=== PATIENT | female | born 1990 | race Caucasian/White ===

== ENCOUNTER 2022-06-04 19:58 | Emergency (ER) | payer BC, SELFPAY ==
[2022-06-04 21:08] LABS: Absolute Lymphocytes (CBC) 3.1 K/uL (0.7-4.9); Hematocrit 30.2 % (36.0-45.0); Lymphocytes % 31.8 % (15.3-44.8); MPV 7.3 fL (7.6-11.3); RBC Red Blood Cell Count 3.68 M/uL (3.86-4.86)
[2022-06-04] MEDS ORDERED: KETOROLAC 30 MG/ML INJ ONE (21:21)
[2022-06-04] MEDS ORDERED: NA CHLORIDE 0.9% 1,000 ML ONE (21:21)
[2022-06-04 21:31] LABS: BUN Blood Urea Nitrogen 9 mg/dL (7-18); Bicarbonate 23 mmol/L (21-32); Glomerular Filtration Rate 111 ml/min (=/>90); Glucose Level 110 mg/dL (74-106); Potassium 3.4 mmol/L (3.5-5.1); Sodium Level 140 mmol/L (136-145)
[2022-06-04 21:35] LABS: Urine Blood 3+ (Negative); Urine Glucose Trace (Negative); Urine Protein 3+ (Negative); Urine Specific Gravity <=1.005 (1.005-1.030); Urine pH 8.5 (5.0-7.0)
[2022-06-04 21:51] LABS: Ferritin 12.9 ng/mL (8-388)
[2022-06-04 22:07] LABS: HCG, Quantitative < 1 mIU/mL (1-3)
--- NOTE | 2022-06-04 22:11 | RAD REPORT ---
EXAM DESCRIPTION: US - Transvaginal Study Probe - 06/04/2022 9:59 pm CLINICAL HISTORY: VAGINAL BLEEDING Pelvic pain. COMPARISON: No comparisons FINDINGS: The uterus is normal in size, shape and echotexture. The uterus measures 9.4 x 7.6 x 4.6 c m. The endometrial stripe measures 11 mm, normal. The right ovary is normal in size, shape and echotexture. The right ovary measures 2.5 x 2.2 x 1.9 c m. The left ovary is not visualized due to bowel gas. No adnexal masses. Normal Doppler blood flow was demonstrated to the right ovary. No significant pelvic ascites. IMPRESSION: Negative examination except for nonvisualization left ovary due to bowel gas.
--- NOTE | 2022-06-04 22:52 | ER ---
Nurse's Notes [facility] Name: Rosibel Arenas Age: 32 yrs Sex: Female : 1990 Arrival Date: 06/04/2022 Time: 20:04 Bed 4 Private MD: Diagnosis: Menorrhagia Presentation: 06/04 20:16 Chief complaint: Patient states: I am on my period and it's very heavy and I am getting jh5 clots the size of my hand, I do have heavy periods and even pass clots but never this size and I am starting to have really bad pain on my right side near what I think is my right ovary i guess. I am filling up 3-4 pads an hour. I took 1,000mg of Tylenol at 6pm. Coronavirus screen: Vaccine status: Patient reports receiving the 2nd dose of the covid vaccine. Client denies travel out of the [place] in the last 14 days. Ebola Screen: Patient negative for fever greater than or equal to 101.5 degrees Fahrenheit, and additional compatible Ebola Virus Disease symptoms Patient denies exposure to infectious person. Patient denies travel to an Ebola-affected area in the 21 days before illness onset. Initial Sepsis Screen: Does the patient meet any 2 criteria? No. Patient's initial sepsis screen is negative. Does the patient have a suspected source of infection? No. Patient's initial sepsis screen is negative. Risk Assessment: Do you want to hurt yourself or someone else? Patient reports no desire to harm self or others. Onset of symptoms was May 29, 2022. 20:16 Method Of Arrival: Ambulatory [facility] 20:16 Acuity: LENCHO 3 [facility] Triage Assessment: 20:18 General: Appears uncomfortable, obese, Behavior is calm, cooperative, appropriate for [facility] age. Pain: Complains of pain in abdomen. : Reports vaginal bleeding that is bright red, with clots, heavy flow. 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 - Social history:: Smoking status: Patient reports the use of cigarette tobacco products, smokes one-half pack cigarettes per day. Screenin:[address] [facility] ED Fall Risk Assessment (Adult) History of falling in the last 3 months, jj7 including since admission No falls in past 3 months (0 pts) Confusion or Disorientation No (0 pts) Intoxicated or Sedated No (0 pts) Impaired Gait No (0 pts) Mobility Assist Device Used No (0 pt) Altered Elimination No (0 pt) Score/Fall Risk Level 0 - 2 = Low Risk Oriented to surroundings. Abuse screen: Denies threats or abuse. Nutritional screening: No deficits noted. Tuberculosis screening: No symptoms or risk factors identified. Assessment: 20:40 General: Appears in no apparent distress. comfortable, Behavior is calm, cooperative, jj7 appropriate for age. : Reports vaginal bleeding that is with clots, heavy flow. Vital Signs: 20:16 BP 152 / 95; Pulse 119; Resp 16; Temp 98.6; Pulse Ox 100% ; Weight 106.59 kg; Height 5 [facility] ft. 3 in. (160.02 cm); Pain 7/10; 21:20 BP 136 / 64; Pulse 98; Resp 20; Pulse Ox 99% ; jj7 23:01 BP 125 / 83; Pulse 87; Resp 20; Pulse Ox 100% ; jj7 20:16 Body Mass Index 41.63 (106.59 kg, 160.02 cm) 5 ED Course: 20:04 Patient arrived in ED. ja2 20:18 Triage completed. 5 20:18 Arm band placed on left wrist. 5 20:22 Jorge Lopez MD is Attending Physician. rt 20:26 Lamin Dick, CONSUELO is Primary Nurse. as6 20:27 Stacy Scales FNP-C is PHCP. snw 20:40 Patient has correct armband on for positive identification. Bed in low position. Call j light in reach. Side rails up X 1. 20:44 Inserted saline lock: 18 gauge in left antecubital area, using aseptic technique. Blood jj7 collected. 20:58 TSH Sent. jj7 20:58 TS Sent. jj7 20:58 Basic Metabolic Panel Sent. jj7 20:58 CBC with Diff Sent. jj7 22:01 US Transvaginal Study (Probe) In Process Unspecified. EDMS 23:09 No provider procedures requiring assistance completed. IV discontinued, intact, as6 bleeding controlled, No redness/swelling at site. Pressure dressing applied. Administered Medications: 21:15 Drug: Ketorolac 30 mg Route: IVP; Site: left antecubital; as6 23:09 Follow up: Response: No adverse reaction as6 21:15 Drug: NS 0.9% 1000 ml Route: IV; Rate: 1 bolus; Site: left antecubital; as6 23:09 Follow up: Response: No adverse reaction; IV Status: Completed infusion; IV Intake: as6 1000ml Medication: 20:40 VIS not applicable for this client. jj7 Intake: 23:09 IV: 1000ml; Total: 1000ml. as6 Outcome: 22:52 Discharge ordered by . rt 23:10 Discharged to home ambulatory. as6 23:10 Condition: stable 23:10 Discharge instructions given to patient, Instructed on discharge instructions, follow up and referral plans. medication usage, Demonstrated understanding of instructions, follow-up care, medications, Prescriptions given X 1. 23:10 Patient left the ED. as6 Signatures: Dispatcher [employer] EDNE Stacy Scales, UDAY-C BPM SOLUTION ARCHITECT-Csnw Catherine Camilo ja2 Catherine Mcgill, RN RN jh5 Lamin Dick RN RN as6 Hope Martell RN RN jj7 Jorge Lopez MD MD rt Corrections: (The following items were deleted from the chart) 20:52 20:44 Inserted saline lock: 18 gauge in left antecubital area, using aseptic technique. jj7 jj7
--- NOTE | 2022-06-04 22:52 | EDPHYS ---
Physician Documentation [facility] Name: Rosibel Arenas Age: 32 yrs Sex: Female : 1990 Arrival Date: 06/04/2022 Time: 20:04 Bed 4 Private MD: ED Physician Jorge Lopez HPI: 06/04 20:41 This 32 yrs old Female presents to ER via Ambulatory with complaints of Vaginal snw Bleeding. 20:41 The patient presents with vaginal bleeding that is heavy, with clots. Onset: The snw symptoms/episode began/occurred acutely, LMP began 05/29/22. Modifying factors: The symptoms are alleviated by nothing, the symptoms are aggravated by nothing. Associated signs and symptoms: Pertinent positives: passing large clots, lower abd cramping, right greater than left. Severity of symptoms: At their worst the symptoms were moderate, severe. The patient is sexually active, reportedly has a single partner. The patient has experienced similar episodes in the past, multiple times, but today's symptoms are worse, larger blood clots, more cramping. The patient has not recently seen a physician. Previously told she had cysts or fibroids and to come to ED for increase in pain . 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 - Social history:: Smoking status: Patient reports the use of cigarette tobacco products, smokes one-half pack cigarettes per day. ROS: 20:43 Constitutional: Negative for fever, chills, and weight loss, Eyes: Negative for injury, snw pain, redness, and discharge, ENT: Negative for injury, pain, and discharge, Neck: Negative for injury, pain, and swelling, Cardiovascular: Negative for chest pain, palpitations, and edema, Respiratory: Negative for shortness of breath, cough, wheezing, and pleuritic chest pain, Back: Negative for injury and pain, MS/Extremity: Negative for injury and deformity, Skin: Negative for injury, rash, and discoloration, Neuro: Negative for headache, weakness, numbness, tingling, and seizure. 20:43 Abdomen/GI: Positive for abdominal pain. 20:43 : Positive for vaginal bleeding. Exam: 20:28 Head/Face: Normocephalic, atraumatic. Eyes: Pupils equal round and reactive to light, snw extra-ocular motions intact. Lids and lashes normal. Conjunctiva and sclera are non-icteric and not injected. Cornea within normal limits. Periorbital areas with no swelling, redness, or edema. ENT: Nares patent. No nasal discharge, no septal abnormalities noted. Tympanic membranes are normal and external auditory canals are clear. Oropharynx with no redness, swelling, or masses, exudates, or evidence of obstruction, uvula midline. Mucous membranes moist. Neck: Trachea midline, no thyromegaly or masses palpated, and no cervical lymphadenopathy. Supple, full range of motion without nuchal rigidity, or vertebral point tenderness. No Meningismus. Chest/axilla: Normal chest wall appearance and motion. Nontender with no deformity. No lesions are appreciated. 20:28 Respiratory: Lungs have equal breath sounds bilaterally, clear to auscultation and percussion. No rales, rhonchi or wheezes noted. No increased work of breathing, no retractions or nasal flaring. Back: No spinal tenderness. No costovertebral tenderness. Full range of motion. 20:28 Skin: Warm, dry with normal turgor. Normal color with no rashes, no lesions, and no evidence of cellulitis. MS/ Extremity: Pulses equal, no cyanosis. Neurovascular intact. Full, normal range of motion. Neuro: Awake and alert, GCS 15, oriented to person, place, time, and situation. Cranial nerves II-XII grossly intact. Motor strength 5/5 in all extremities. Sensory grossly intact. Cerebellar exam normal. Normal gait. 20:28 Constitutional: The patient appears alert, awake, anxious. 20:28 Cardiovascular: Rate: tachycardic, Rhythm: regular, Pulses: no pulse deficits are appreciated, Heart sounds: normal. 20:28 Abdomen/GI: Inspection: abdomen appears normal, obese Bowel sounds: normal, Palpation: mild abdominal tenderness, in the suprapubic area, right lower quadrant and left lower quadrant. 20:28 Psych: Behavior/mood is pleasant, cooperative, anxious. Vital Signs: 20:16 BP 152 / 95; Pulse 119; Resp 16; Temp 98.6; Pulse Ox 100% ; Weight 106.59 kg; Height 5 jh5 ft. 3 in. (160.02 cm); Pain 7/10; 21:20 BP 136 / 64; Pulse 98; Resp 20; Pulse Ox 99% ; jj7 23:01 BP 125 / 83; Pulse 87; Resp 20; Pulse Ox 100% ; jj7 20:16 Body Mass Index 41.63 (106.59 kg, 160.02 cm) [facility] MDM: 20:41 Patient medically screened. snw 20:44 Differential diagnosis: dysmenorrhea, endometriosis, menorrhea, ovarian cyst, uterine snw fibroids. Data reviewed: vital signs, nurses notes. I considered the following discharge prescriptions or medication management in the emergency department Toradol for pain, prostaglandin inhibition , IVF for tachycardia. Transition of care: After a detail discussion of the patient's case, care is transferred to Jorge Lopez MD. 06/04 20:23 Order name: Basic Metabolic Panel; Complete Time: 22:28 snw 06/04 20:23 Order name: CBC with Diff; Complete Time: 21:30 snw 06/04 20:23 Order name: TS; Complete Time: 22:28 snw 06/04 20:23 Order name: TSH; Complete Time: 22:28 snw 06/04 20:47 Order name: Add On-Lab w 06/04 20:27 Order name: US Transvaginal Study (Probe); Complete Time: 22:28 snw 06/04 21:35 Order name: Urine Dipstick-Ancillary; Complete Time: 22:28 EDMS 06/04 21:35 Order name: Test, Serum mw2 06/04 21:39 Order name: HCG, Quantitative; Complete Time: 22:28 EDMS 06/04 21:39 Order name: Ferritin; Complete Time: 22:28 EDOR 06/04 20:23 Order name: IV Saline Lock; Complete Time: 20:58 snw 06/04 20:23 Order name: Labs collected and sent; Complete Time: 20:58 snw 06/04 20:23 Order name: NPO; Complete Time: 20:58 snw 06/04 20:23 Order name: Urine Dipstick-Ancillary (obtain specimen); Complete Time: 21:35 snw 06/04 20:23 Order name: Urine Test (obtain specimen); Complete Time: 21:34 snw Administered Medications: 21:15 Drug: Ketorolac 30 mg Route: IVP; Site: left antecubital; as6 23:09 Follow up: Response: No adverse reaction as6 21:15 Drug: NS 0.9% 1000 ml Route: IV; Rate: 1 bolus; Site: left antecubital; 23:09 Follow up: Response: No adverse reaction; IV Status: Completed infusion; IV Intake: as6 1000ml Disposition: 22:54 Co-signature as Attending Physician, Jorge Lopez MD I reviewed the patient's care rt provided by Advanced Practice Provider \T\ agree w/ the diagnosis \T\ care plan. I personally saw the pt \T\ performed a substantive portion of the visit, incldng all aspects of the (History/Exam/Medical Decision Making). Physically evaluated the patient, she is in no acute distress my examination. She has a mild anemia, not requiring blood transfusion. I discussed with the patient supplementation to increase her bodies on blood eyes. We will start Lysteda for menorrhagia. Ultrasound shows no acute abnormalities, the rest of the work-up is benign. The patient has no signs or symptoms of UTI, will send for urine culture, will not treat at this time as she is asymptomatic. 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 Disposition Summary: 06/04/22 22:52 Discharge Ordered Location: Home rt Problem: an acute exacerbation rt Symptoms: are unchanged rt Condition: Stable rt Diagnosis - Menorrhagia rt Followup: rt - With: Private Physician - When: 2 - 3 days - Reason: Discharge Instructions: - Discharge Summary Sheet rt - Menorrhagia rt Forms: - Medication Reconciliation Form rt - Thank You Letter rt - Antibiotic Education rt - Prescription Opioid Use rt Prescriptions: - LYSTEDA 650 mg TAB - take 1 tablet by ORAL route 3 times per day; 30 tablet; Refills: 0, Product rt Selection Permitted Signatures: Dispatcher [employer] Stacy Valle FNP-C FNP-Catherine Ortiz RN RN 5 Lamin Dick RN RN as6 Jorge Lopez MD MD rt Corrections: (The following items were deleted from the chart) 20:48 FERRITIN+C.LAB.BRZ ordered. EDMS EDMS 21:36 TEST, SERUM+SC.LAB.BRZ ordered. EDMS EDMS
[2022-06-04 23:21] VITALS: TEMP 98.6
[2022-06-04 23:33] VITALS: BP 125/83; O2SAT 100
== END 2022-06-04 23:10 | disposition home or self-care (01) ==
LOC: ER 19:58
DX: N92.0 Excessive and frequent menstruation with regular cycle (principal); F17.210 Nicotine dependence, cigarettes, uncomplicated
CPT/HCPCS: 36415; 76830; 80048; 81003; 82728; 84443; 84702; 84703; 85025; 86850; 86900; 86901; 96361; 96374; 99284; J7030